=== PATIENT | female | born 1985 | race Caucasian/White ===

== ENCOUNTER 2019-12-20 01:42 | Emergency (ER) | payer SELFPAY ==
[~2019-12-20] VITALS: Ht 157 cm; Wt 72.7 kg
[2019-12-20] VITALS (12 sets, daily range): BP systolic 108–128; BP diastolic 64–98
--- OUTSIDE RECORDS SUMMARY | 2019-12-20 01:49 | XMS REPORT | Continuity of Care Document ---
Author Organization Unknown Address Unknown Phone Unavailable Allergies There is no data. Medications There is no data. Problems There is no data. Procedures There is no data. Results There is no data. Encounters ACCT No. Visit Date/Time Discharge Status Pt. Type Provider Facility Loc./Unit Complaint [id number] 12/08/2018 08:00:00 12/08/2018 23:59: 59 CLS [facility]
[2019-12-20] MEDS ORDERED: RT-ALBUTEROL INHALER HFA (VENTOLIN HFA) 8 GM IH PRN (02:00)
[2019-12-20] MEDS ORDERED: methylPREDNISolone 125 MG (Solu-MEDROL) VIAL IVP ONE (02:00)
[2019-12-20] MEDS ORDERED: RX-ALBUTEROL INHALER (PROAIR) 8.5 GM IH STA (02:05)
--- NOTE | 2019-12-20 02:09 | ED Dyspnea ---
General Stated Complaint: COUGH, WHEEZING, FEVER Source of Information: Patient History of Present Illness Date Seen by Provider: Dec 20, 2019 Time Seen by Provider: 01:55 Initial Comments PT ARRIVES VIA POV C/O SEVERE SHORTNESS OF BREATH PT HAS ASTHMA--USED ALBUTEROL INHALER X 1 TODAY AT NOON C/O NON-PRODUCTIVE COUGH C/O CHEST TIGHTNESS C/O SUBJECTIVE FEVER C/O SORE THROAT C/O LOSS OF SMELL AND TASTE--STATES DUE TO NASAL CONGESTION FROM ALLERGIES. 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 SICK CONTACTS LMP 1 MONTH AGO, S/P BTL NO PCP--GOES TO VARIOUS ER'S FOR ALL MEDICAL CARE Allergies and Home Medications Allergies Coded Allergies: Sulfa (Sulfonamide Antibiotics) (Verified Allergy, Unknown, 12/20/19) Home Medications Azithromycin 500 Mg Tablet, 500 MG PO DAILY Prescribed by: LEDY HAYWARD on 12/20/19 0404 Methylprednisolone 4 Mg Tab.ds.pk, 4 MG PO UD PER DOSE PACK INSTRUCTIONS Prescribed by: LEDY HAYWARD on 12/20/19 0404 Patient Home Medication List Home Medication List Reviewed: Yes Review of Systems Review of Systems Constitutional: see HPI, fever Respiratory: see HPI, cough, short of breath, wheezing Cardiovascular: see HPI, chest pain Gastrointestinal: no symptoms reported Genitourinary: no symptoms reported Musculoskeletal: no symptoms reported Skin: no symptoms reported Psychiatric/Neurological: No Symptoms Reported Endocrine: No Symptoms Reported Hematologic/Lymphatic: No Symptoms Reported Past Dcynvan-Edbrin-Meorzd Hx Past Med/Social Hx: Reviewed and Corrections made Patient Social History Alcohol Use: Occasionally Uses Recreational Drug Use: Yes (REGULAR THC USE, HX OF METH USE-DENIES IV USE) Drug of Choice: REGULAR THC USE, HX OF METH USE-CLAIMS NO IV USE Smoking Status: Current Everyday Smoker (07/01 PPD) Type Used: Cigarettes Seasonal Allergies Seasonal Allergies: Yes Past Medical History Surgeries: Yes ( X 2; LEFT KNEE ACL RECONSTRUCTION) Section, Gallbladder, Orthopedic, Tubal Ligation Respiratory: Yes Asthma Cardiac: No Neurological: No 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 oz. kg; BMI Method: General Appearance: WD/WN, Anxious (VERY DRAMATIC, TALKS IN WHISPER AND IN 1-2 WORD PHRASES--THIS STOPS WHEN DISTRACTED, AND TALKS NORMALLY IN FULL SENTENCES), Mild Distress, Other (FREQUENT TIGHT COUGH) HEENT: PERRL/EOMI, Other (NASAL CONGESTION) Respiratory: Decreased Breath Sounds (MINIMAL AERATION IN ALL LUNG GALLARDO), Wheezing (FAINT/TIGHT WHEEZING DIFFUSELY BILATERALLY), Other (MILDLY DYSPNEIC, HYPERVENTILATING) Cardiovascular: Regular Rate, Rhythm, No Edema, No JVD, No Murmur, Normal Peripheral Pulses Gastrointestinal: Non Tender, Soft Extremity: Normal Inspection, No Pedal Edema Neurologic/Psychiatric: Alert, Oriented x3, No Motor/Sensory Deficits, aircraft mechanic armament II- XII Norm as Tested Skin: Normal Color, Warm/Dry Focused Exam Lactate Level 12/20/19 02:00: Lactic Acid Level 1.07 Lactic Acid Level Laboratory Tests Test 12/20/19 02:00 Lactic Acid Level 1.07 MMOL/L (0.50-2.00) Progress/Results/Core Measures Results/Orders Lab Results Laboratory Tests Test 12/20/19 02:00 12/20/19 02:20 12/20/19 02:23 12/20/19 02:40 Range/Units White Blood Count 11.7 H 4.3-11.0 10^3/uL Red Blood Count 4.07 L 4.35-5.85 10^6/uL Hemoglobin 13.1 11.5-16.0 G/DL Hematocrit 39 35-52 % Mean Corpuscular Volume 95 80-99 FL Mean Corpuscular Hemoglobin 32 25-34 PG Mean Corpuscular Hemoglobin Concent 34 32-36 G/DL Red Cell Distribution Width 13.5 10.0-14.5 % Platelet Count 304 130-400 10^3/uL Mean Platelet Volume 10.8 H 7.4-10.4 FL Neutrophils (%) (Auto) 69 42-75 % Lymphocytes (%) (Auto) 19 12-44 % Monocytes (%) (Auto) 7 0-12 % Eosinophils (%) (Auto) 4 0-10 % Basophils (%) (Auto) 0 0-10 % Neutrophils # (Auto) 8.1 H 1.8-7.8 X 10^3 Lymphocytes # (Auto) 2.2 1.0-4.0 X 10^3 Monocytes # (Auto) 0.9 0.0-1.0 X 10^3 Eosinophils # (Auto) 0.5 H 0.0-0.3 10^3/uL Basophils # (Auto) 0.0 0.0-0.1 10^3/uL Erythrocyte Sedimentation Rate 16 0-20 MM/HR Prothrombin Time 12.2 12.2-14.7 SEC INR Comment 0.9 0.8-1.4 Activated Partial Thromboplast Time 29 24-35 SEC D-Dimer 0.68 H 0.00-0.49 UG/ML Sodium Level 138 135-145 MMOL/L Potassium Level 3.6 3.6-5.0 MMOL/L Chloride Level 107 98-107 MMOL/L Carbon Dioxide Level 21 21-32 MMOL/L Anion Gap 10 5-14 MMOL/L Blood Urea Nitrogen 10 7-18 MG/DL Creatinine 0.79 0.60-1.30 MG/DL Estimat Glomerular Filtration Rate > 60 BUN/Creatinine Ratio 13 Glucose Level 101 70-105 MG/DL Lactic Acid Level 1.07 0.50-2.00 MMOL/L Calcium Level 9.4 8.5-10.1 MG/DL Corrected Calcium 9.2 8.5-10.1 MG/DL Magnesium Level 2.2 1.6-2.4 MG/DL Total Bilirubin 0.4 0.1-1.0 MG/DL Aspartate Amino Transf (AST/SGOT) 20 5-34 U/L Alanine Aminotransferase (ALT/SGPT) 26 0-55 U/L Alkaline Phosphatase 73 40-136 U/L Lactate Dehydrogenase 248 H 125-220 U/L C-Reactive Protein High Sensitivity 0.37 0.00-0.50 MG/DL Total Protein 7.4 6.4-8.2 GM/DL Albumin 4.2 3.2-4.5 GM/DL Procalcitonin 0.02 <0.10 NG/ML Monoscreen NEGATIVE NEGATIVE Group A Streptococcus Screen NEGATIVE NEGATIVE Urine Color YELLOW Urine Clarity CLEAR Urine pH 6.0 5-9 Urine Specific Menan <=1.005 1.016-1.022 Urine Protein NEGATIVE NEGATIVE Urine Glucose (UA) NEGATIVE NEGATIVE Urine Ketones NEGATIVE NEGATIVE Urine Nitrite NEGATIVE NEGATIVE Urine Bilirubin NEGATIVE NEGATIVE Urine Urobilinogen 0.2 < = 1.0 MG/DL Urine Leukocyte Esterase NEGATIVE NEGATIVE Urine RBC (Auto) NEGATIVE NEGATIVE Urine RBC NONE /HPF Urine WBC NONE /HPF Urine Squamous Epithelial Cells 0-2 /HPF Urine Crystals NONE /LPF Urine Bacteria NEGATIVE /HPF Urine Casts NONE /LPF Urine Mucus NEGATIVE /LPF Urine Culture Indicated NO Urine Test NEGATIVE NEGATIVE Urine Opiates Screen NEGATIVE NEGATIVE Urine Oxycodone Screen NEGATIVE NEGATIVE Urine Methadone Screen NEGATIVE NEGATIVE Urine Propoxyphene Screen NEGATIVE NEGATIVE Urine Barbiturates Screen NEGATIVE NEGATIVE Ur Tricyclic Antidepressants Screen NEGATIVE NEGATIVE Urine Phencyclidine Screen NEGATIVE NEGATIVE Urine Amphetamines Screen NEGATIVE NEGATIVE Urine Methamphetamines Screen NEGATIVE NEGATIVE Urine Benzodiazepines Screen NEGATIVE NEGATIVE Urine Cocaine Screen NEGATIVE NEGATIVE Urine Cannabinoids Screen POSITIVE H NEGATIVE My Orders Orders - LEDY HAYWARD DO Cbc With Automated Diff (12/20/19 01:46) Comprehensive Metabolic Panel (12/20/19:46) Fibrin Degradation Products (12/20/19:46) Hs C Reactive Protein (12/20/19:46) Erythrocyte Sedimentation Rate (12/20/19:46) LDH (12/20/19:46) Blood Culture (12/20/19:46) Rapid Strep A Screen (12/20/19:46) Chest 1 View, Ap/Pa Only (12/20/19:46) Coronavirus Sars-Cov-2 So 2018 (12/20/19 01:46) Hcg,Qualitative Urine (12/20/19:46) Ed Iv/Invasive Line Start (12/20/19:46) Monitor-Rhythm Ecg Trace Only (12/20/19:46) Lactic Acid Analyzer (12/20/19:46) Magnesium (12/20/19:46) Monotest (12/20/19:46) Procalcitonin (Pct) (12/20/19:46) Protime With Inr (12/20/19:46) Partial Thromboplastin Time (6/22/20 01:46) Ua Culture If Indicated (12/20/19 01:46) Methylprednisolone Sod Succ (Solu-Medrol (12/20/19 02:00) Albuterol Inhaler (Ventolin Hfa) (12/20/19 02:00) Rx-Albuterol Inhaler (Rx-Proair) (12/20/19 02:05) Ipratropium Inhaler (Atrovent Inhaler) (12/20/19 07:00) Budesonide Inhalation Solution (Pulmicor (12/20/19 02:19) Fluticasone/Salmeterol 115/21 (Advair Hf (12/20/19 08:00) Drug Screen Stat (Urine) (12/20/19 03:12) Azithromycin Tablet (Zithromax Tablet) (12/20/19 04:15) Medications Given in ED Current Medications Medications Dose Ordered Sig/Sabrina Route Start Time Stop Time Status Last Admin Dose Admin Salmeterol Xinafoate/ Fluticasone 2 PUFFS RTBID ONCE IH 12/20/19 08:00 12/20/19 04:25 DC 12/20/19 03:49 2 PUFF Vital Signs/I&O 12/20/19 12/20/19 12/20/19 12/20/19 01:42 01:45 01:55 02:10 Temp 36.7 36.7 Pulse 77 72 67 63 Resp 18 B/P (MAP) 128/89 (102) 128/89 (102) 123/76 (92) 120/80 (93) O2 Delivery Room Air Room Air Room Air Room Air 12/20/19 12/20/19 12/20/19 12/20/19 02:25 02:40 02:55 03:10 Pulse 73 93 74 83 Resp 18 18 18 18 B/P (MAP) 126/80 (95) 112/98 (103) 118/75 (89) 116/64 (81) O2 Delivery Room Air Room Air Room Air Room Air 12/20/19 12/20/19 12/20/19 12/20/19 03:25 03:40 03:55 04:10 Pulse 69 65 64 68 Resp 18 18 18 18 B/P (MAP) 121/73 (89) 112/73 (86) 111/75 (87) 108/68 (81) O2 Delivery Room Air Room Air Room Air Room Air 12/20/19 04:24 Temp 36.7 Pulse 68 Resp 18 B/P (MAP) 108/68 (81) Pulse Ox 97 O2 Delivery Room Air Progress Progress Note : Progress Note PT SEEN IN COVID UNIT. PPE WORN AT ALL TIMES COVID -19 TESTING PERFORMED PT GIVEN ALBUTEROL, ATROVENT AND ADVAIR INHALER TREATMENTS WITH RESOLUTION OF SYMPTOMS NO DETERIORATION IN PT'S CONDITION DURING ER STAY Diagnostic Imaging Comments CXR--NO ACUTE PROCESS, PENDING RADIOLOGIST REVIEW Departure Impression Primary Impression: COVID P.U.I. Additional Impressions: Asthma exacerbation Cigarette smoker Marijuana smoker Disposition: HOME, SELF-CARE Condition: Improved Departure-Patient Inst. Referrals: NO,LOCAL PHYSICIAN (PCP/Family) Primary Care Physician Patient Instructions: Asthma, Adult (DC), Coronavirus Disease 2019 (COVID-19) (DC), Marijuana Use and Addiction (DC), Quitting Smoking Add. Discharge Instructions: HOME, REST LOTS OF CLEAR LIQUIDS--WATER, BROTH, JELLO, GATORADE TYLENOL 1 GRAM AND MOTRIN 800 MG 4 TIMES A DAY FOR PAIN OR FEVER NO SMOKING OF ANY KIND!!!! QUARANTINE YOURSELF AND ALL HOUSEHOLD MEMBERS FOR THE NEXT 2 WEEKS OR UNTIL CLEARED BY HEALTH DEPARTMENT. USE YOUR WITH SPACERS AT ALL TIMES USE YOUR ALBUTEROL AND ATROVENT ( IPRATROPIUM ) INHALERS 2 PUFFS EVERY 4 HOURS NEEDED FOR BREATHING USE YOUR ADVAIR INHALER--2 PUFFS TWICE A DAY EVERY DAY ESTABLISH WITH LOCAL DR OF CHOICE SOON POSSIBLE--LIST PROVIDED Scripts Azithromycin (Zithromax) 500 Mg Tablet 500 MG PO DAILY for 5 Days, #5 TAB Prov: LEDY HAYWARD DO 12/20/19 Methylprednisolone (Medrol) 4 Mg Tab.ds.pk 4 MG PO UD for 6 Days, #21 PKG PER DOSE PACK INSTRUCTIONS Prov: LEDY HAYWARD DO 12/20/19 Work/School Note: Local Medical Staff Listing, Work Release Form Date Seen in the Emergency Department: Dec 19, 2019 Return to Work: Dec 20, 2019 Other Restrictions Listed Below: NO WORK FOR 2 WEEKS OR UNTIL CLEARED BY HEALTH DEPARTMENT LEDY HAYWARD DO Dec 20, 2019 02:09
[2019-12-20] MEDS ORDERED: RT-BUDESONIDE NEBS 0.5 MG/2ML (PULMICORT) AMP ONE (02:19)
--- NOTE | 2019-12-20 02:23 | NUR ---
COVID-19 SWAB COLLECTED AND SENT TO LAB WITH RENETTA AMAYA AND TOW MOTOR MECHANIC NOTIFIED.
[2019-12-20 02:49] LABS: BASOPHILS % (AUTO) 0 % (0-10); EOSINOPHILS # (AUTO) 0.5 10^3/uL (0.0-0.3); EOSINOPHILS % (AUTO) 4 % (0-10); HEMATOCRIT 39 % (35-52); HEMOGLOBIN 13.1 G/DL (11.5-16.0); LYMPHOCYTES # (AUTO) 2.2 X 10^3 (1.0-4.0); LYMPHOCYTES % (AUTO) 19 % (12-44); MEAN CORPUSCULAR HEMOGLOBIN 32 PG (25-34); MEAN CORPUSCULAR HGB CONC 34 G/DL (32-36); MEAN CORPUSCULAR VOLUME 95 FL (80-99); MEAN PLATELET VOLUME 10.8 FL (7.4-10.4); MONOCYTES # (AUTO) 0.9 X 10^3 (0.0-1.0); MONOCYTES % (AUTO) 7 % (0-12); NEUTROPHILS # (AUTO) 8.1 X 10^3 (1.8-7.8); NEUTROPHILS % (AUTO) 69 % (42-75); PLATELET COUNT 304 10^3/uL (130-400); RED CELL DISTRIBUTION WIDTH 13.5 % (10.0-14.5); WHITE BLOOD COUNT 11.7 10^3/uL (4.3-11.0)
[2019-12-20 02:54] LABS: ALBUMIN 4.2 GM/DL (3.2-4.5); CHLORIDE 107 MMOL/L (98-107); POTASSIUM 3.6 MMOL/L (3.6-5.0); SODIUM 138 MMOL/L (135-145)
[2019-12-20 02:55] LABS: CALCIUM 9.4 MG/DL (8.5-10.1)
[2019-12-20 02:56] LABS: GLUCOSE 101 MG/DL (70-105); TOTAL PROTEIN 7.4 GM/DL (6.4-8.2)
--- NOTE | 2019-12-20 02:56 | NUR ---
BRET RETINAL SURGEON, CALLED AT THIS TIME TO NOTIFY DR. HAYWARD THAT PHARMACIST WOULD BE COMING IN TO GET STEROID INHALER FROM PHARMACY FOR PT.
[2019-12-20 02:57] LABS: CARBON DIOXIDE 21 MMOL/L (21-32)
[2019-12-20 02:58] LABS: BILIRUBIN,TOTAL 0.4 MG/DL (0.1-1.0)
[2019-12-20 03:00] LABS: ALKALINE PHOSPHATASE 73 U/L (40-136); CREATININE SERUM 0.79 MG/DL (0.60-1.30); FIBRIN DEGRADATION PRODUCTS 0.68 UG/ML (0.00-0.49); GFR ESTIMATED > 60; INR 0.9 (0.8-1.4); PROTHROMBIN TIME PATIENT 12.2 SEC (12.2-14.7)
[2019-12-20 03:01] LABS: BUN/CREATININE RATIO 13
[2019-12-20 03:03] LABS: ALANINE AMINOTRANSFERASE 26 U/L (0-55); MAGNESIUM 2.2 MG/DL (1.6-2.4)
[2019-12-20 03:18] LABS: ERYTHROCYTE SEDIMENTATION RATE 16 MM/HR (0-20)
[2019-12-20 03:43] LABS: BILIRUBIN,URINE NEGATIVE (NEGATIVE); CLARITY,URINE CLEAR; COLOR,URINE YELLOW; GLUCOSE, URINE (UA) NEGATIVE (NEGATIVE); KETONES,URINE NEGATIVE (NEGATIVE); LEUKOCYTE ESTERASE ,URINE NEGATIVE (NEGATIVE); NITRITE,URINE NEGATIVE (NEGATIVE); PROTEIN,URINE NEGATIVE (NEGATIVE)
[2019-12-20 03:57] LABS: AMPHETAMINE SCREEN, URINE NEGATIVE (NEGATIVE); BACTERIA,URINE NEGATIVE /HPF; BENZODIAZEPINES SCREEN URINE NEGATIVE (NEGATIVE); CANNABINOID SCREEN, URINE POSITIVE (NEGATIVE); COCAINE SCREEN URINE NEGATIVE (NEGATIVE); HCG,QUALITATIVE URINE NEGATIVE (NEGATIVE); METHAMPHETAMINE SCREEN URINE S NEGATIVE (NEGATIVE); SQUAMOUS EPITHELIAL CELL,UR 0-2 /HPF
[2019-12-20 03:58] LABS: BARBITURATE SCREEN URINE NEGATIVE (NEGATIVE); METHADONE STAT NEGATIVE (NEGATIVE); OPIATE SCREEN URINE NEGATIVE (NEGATIVE); OXYCODONE STAT NEGATIVE (NEGATIVE); PROPOXYPHENE STAT NEGATIVE (NEGATIVE); TRICYCLIC ANTIDEPRESSANTS SCRE NEGATIVE (NEGATIVE)
[2019-12-20] MEDS ORDERED: AZIT500T PO (04:04)
[2019-12-20] MEDS ORDERED: METH4TAB PO (04:04)
[2019-12-20] MEDS ORDERED: AZITHROMYCIN 250 MG TAB (ZITHROMAX) PO ONE (04:15)
[2019-12-20] MEDS ORDERED: IPRATROPIUM INHALER (ATROVENT) 12.9 GM INH SCH (07:00)
--- NOTE | 2019-12-20 07:52 | Diagnostic Imaging Report ---
CHEST 1 VIEW, AP/PA ONLY Indication: Shortness of breath Comparison: None available. Findings: No focal airspace disease in the visualized lungs. Please note that the posterior lower lobes are poorly evaluated by portable radiography. No pleural effusion or pneumothorax. Normal cardiomediastinal silhouette. Impression: 1. No acute cardiopulmonary process by portable radiography. Dictated by: Dictated on workstation # [id number]
[2019-12-20] MEDS ORDERED: ADVAIR HFA 115/21 MCG INHALER 8 GM IH ONE (08:00)
== END 2019-12-20 04:24 | disposition home or self-care (01) ==
LOC: ER 01:44
DX: J45.901 Unspecified asthma with (acute) exacerbation (principal); F17.210 Nicotine dependence, cigarettes, uncomplicated; F12.10 Cannabis abuse, uncomplicated; Z88.2 Allergy status to sulfonamides; Z20.828 Contact with and (suspected) exposure to other viral communicable diseases
CPT/HCPCS: 71045; 80053; 80306; 81000; 83605; 83615; 83735; 84145; 84703; 85025; 85379; 85610; 85652; 85730; 86141; 86308; 87040; 87430; 93041; 99284; U0002; 36415; 87635